=== PATIENT | female | born 1985 | race Caucasian/White ===

== ENCOUNTER 2023-01-13 01:58 | Emergency (ER) | payer SELFPAY ==
[2023-01-13 02:06] VITALS: BP 173/95; PULSE 50; RESP 16; TEMP 36.6; O2SAT 98; BMI 33.3
[2023-01-13] MEDS: KETOROLAC 30 MG/ML VIAL IV (02:06)
[2023-01-13] MEDS: METOCLOPRAMIDE 10 MG/2 ML INJ IV (02:06)
[2023-01-13] MEDS: diphenhydrAMINE 50 MG/ML VIAL 25 MG IV (02:06)
[2023-01-13] MEDS: SODIUM CHLORIDE 0.9% 1,000 ML 1000 ML IV (02:06)
--- NOTE | 2023-01-13 02:08 | ED.GENADULT ---
HPI - General Adult General Chief complaint: Headache Stated complaint: migraine Time Seen by Provider: 01/13/23 01:59 Source: patient and EMS Mode of arrival: EMS Limitations: no limitations History of Present Illness HPI narrative: Patient is a 37-year-old female. She does have a history of migraine headaches. She is brought to the emergency department by EMS for evaluation of a migraine that she states started earlier this evening. It was less than 6 hours ago. She states that this is the worst migraine that she is ever had but it does feel like her prior migraines. It was not sudden onset. No fevers. No neck pain. She is having photophobia. Is also having nausea. Did try caffeine and Tylenol and ibuprofen at home prior to arrival. She did receive fentanyl by EMS prior to arrival as well. Related Data Previous Rx's Medication Instructions Recorded sumatriptan succinate 50 mg tablet See Rx Instructions PO .COMPLEX 01/13/23 (Imitrex) #12 tabs Allergies Allergy/AdvReac Type Severity Reaction Status Date / Time No Known Drug Allergies Allergy Verified 01/13/23 03:09 Review of Systems Constitutional Constitutional: Reports system reviewed and no additional complaints, except as documented Eyes Eyes: Reports system reviewed and no additional complaints, except as documented ENT Ears, Nose, Mouth, and Throat: Reports system reviewed and no additional complaints, except as documented Integumentary/Breasts Skin/Breast: Reports system reviewed and no additional complaints, except as documented Hematologic/Lymphatic On Anticoagulants: No Exam Initial Vital Signs Initial Vital Signs: Vital Signs Temperature 97.8 F 01/13/23 02:06 Pulse Rate 50 L 01/13/23 02:06 Respiratory Rate 16 01/13/23 02:06 Blood Pressure 173/95 H 01/13/23 02:06 Pulse Oximetry 98 01/13/23 02:06 Oxygen Delivery Method Room Air 01/13/23 02:06 Const General: cooperative, comfortable and No ill appearing HENMT Head: normal to inspection and normocephalic Resp Effort & Inspection: normal respiratory effort Cardio Rate: regular rate Skin General: no rashes or lesions noted Neuro General: patient alert, patient awake and moves all extremities Speech: speech normal Motor: muscle tone normal throughout Sensory Exam: no sensory deficits noted Extrem General: normal to inspection Course Orders Ordered: ED Orders 01/13/23 02:10 CT angio head and neck Stat Discontinued Medications Acetaminophen (Acetaminophen 325 Mg Tablet) 650 mg PO NOW ONE Stop: 01/13/23 05:32 Last Admin: 01/13/23 05:53 Dose: 650 mg Documented By: CINTHIA Diphenhydramine HCl (Diphenhydramine 50 Mg/Ml Vial) 25 mg IV NOW ONE Stop: 01/13/23 02:00 Last Admin: 01/13/23 02:06 Dose: 25 mg Documented By: JALEN Sodium Chloride (Normal Saline 0.9%) 1,000 mls @ 1,000 mls/hr IV BOLUS ONE Stop: 01/13/23 02:58 Last Infusion: 01/13/23 03:26 Dose: 0 mls/hr Documented By: Admin: 01/13/23 02:06 Dose: 1,000 mls/hr Documented By: JALEN Ketorolac Tromethamine (Ketorolac 30 Mg/Ml Vial) 30 mg IV NOW ONE Stop: 01/13/23 02:00 Last Admin: 01/13/23 02:06 Dose: 30 mg Documented By: JALEN Metoclopramide HCl (Metoclopramide 10 Mg/2 Ml Inj) 10 mg IV NOW ONE Stop: 01/13/23 02:00 Last Admin: 01/13/23 02:06 Dose: 10 mg Documented By: JALEN Sumatriptan Succinate (Sumatriptan 25 Mg Tablet) 50 mg PO NOW ONE Stop: 01/13/23 05:49 Last Admin: 01/13/23 05:59 Dose: 50 mg Documented By: CINTHIA Vital Signs Vital signs: Vital Signs - 8 hr 01/13/23 02:06 Temperature 97.8 F Pulse Rate 50 L Respiratory Rate 16 Blood Pressure 173/95 H Pulse Oximetry 98 Oxygen Delivery Method Room Air Medical Decision Making Imaging Data CTA - brain/neck: Radiologist's Impression: CT head without contrast No acute intracranial process CT angiography Patient head and neck CTA. No occlusion or hemodynamically significant stenosis involving the cerebral or neck vasculature. No aneurysm ECG Data Attestation: I personally reviewed and interpreted this ECG as follows: MDM Narrative Medical decision making narrative: Patient does have a history of migraines she reports today with a headache that is similar to her previous migraines but just worse than normal. No fevers. No trauma. Low suspicion for meningitis. Head CT performed less than 6 hours of the onset of symptoms negative for intracranial hemorrhage. CTA is unremarkable. No signs of aneurysm. She does report improvement of symptoms after initial treatment however still had some residual headache. She was given a dose of Imitrex. She is not currently on any sort headache medications. Will discharge patient home with a prescription for this. She was given return precautions and follow-up instructions. She expressed understanding agreement. Discharge Plan Departure Patient Disposition: Home Clinical Impression: Migraine Instructions: DI for Migraine Activity Restrictions/Additional Instructions: I do recommend that you contact your primary doctor for follow-up to discuss your headaches. Return to the emergency department for worsening symptoms. Prescriptions: New sumatriptan succinate [Imitrex] 50 mg tablet See Rx Instructions .ROUTE .COMPLEX Qty: 12 0RF Rx Instructions: take 1 tab at onset of headache; if no relief may repeat 1 tab after at least 2 hrs; max = 4 tabs/24 hr Stand Alone Forms: Patient Portal/API
--- NOTE | 2023-01-13 02:10 | DI.CT.S_ITS ---
PROCEDURE: CT ANGIO HEAD AND NECK INDICATIONS: migraine TECHNIQUE: Pre-contrast 4.5 mm thick sections acquired from the foramen magnum to the vertex. After the administration of intravenous contrast, 1 mm thick sections acquired from the aortic arch through the [place]. Post-contrast 4.5 mm thick sections then re-acquired from the foramen magnum to the vertex. 3-dimensional iafehlu-yavhoeikx-pvsovvoolw (MIP) and/or volume rendering reformats were acquired of the central intracranial vasculature and neck separately. For radiation dose reduction, the following was used: automated exposure control, adjustment of mA and/or kV according to patient size. COMPARISON: None. FINDINGS: Image quality: Excellent. BRAIN: CSF spaces: Ventricles are normal in size and shape. Basal cisterns are patent. No extra-axial fluid collections. Brain: No midline shift. No intracranial bleeds or masses. Tan-white matter interface appears intact. Skull and face: Calvarium and facial bones appear intact, without suspicious lesions. Orbits appear normal. Sinuses: Sinuses and mastoids are clear. HEAD CT ANGIOGRAPHY: Anterior circulation: Intracranial internal carotid arteries are normal in size and flow. The flow within the paired anterior cerebral arteries is normal and symmetric. The flow within the middle cerebral arteries is normal and symmetric. The anterior communicating artery is seen. No aneurysms are seen. Posterior circulation: Visualized portions of the vertebral arteries demonstrate normal caliber, and join to form a normal appearing basilar artery. Flow within the posterior cerebral arteries is normal and symmetric. No aneurysms are seen. NECK CT ANGIOGRAPHY: Carotid system: The great vessels demonstrate a conventional anatomy as they arise from the aortic arch. The origins of the common carotid arteries appear patent. The common carotid arteries demonstrate normal caliber and courses. The bifurcation regions are both widely patent. The internal carotid arteries demonstrate normal calibers and courses. Posterior circulation: The origins of the vertebral arteries both appear widely patent. The more superior extracranial portions of both vertebral arteries also demonstrate normal courses and calibers. They join to form a normal appearing basilar artery. Soft tissues: Visualized neck soft tissues demonstrate no suspicious abnormalities. Bones: No suspicious bony lesions. Moderate degenerative disc disease at C5-C6 and C6-C7. Visualized cervical spine appears normally aligned. IMPRESSION: 1. No acute intracranial abnormalities. 2. No hemodynamic significant stenosis in anterior or posterior circulations. 3. No hemodynamic significant stenosis in cervical carotid arteries or vertebral arteries bilaterally. No significant discrepancy with the maintenance mechanic 2nd shift radiology preliminary report. Any quantitative measurements of stenosis were performed using NASCET criteria. Dictated by: Leticia Escamilla M.D. on 01/13/2023 at 7:49 Approved by: Leticia Escamilla M.D. on 01/13/2023 at 9:04
[2023-01-13] MEDS: ACETAMINOPHEN 325 MG TABLET 650 MG PO (05:53)
[2023-01-13] MEDS: SUMAtriptan 25 MG TABLET 50 MG PO (05:59)
[2023-01-13 08:45] VITALS: BP 198/127; PULSE 81; O2SAT 100
[2023-01-13 08:50] VITALS: BP 167/88
== END 2023-01-13 09:00 | disposition home or self-care (01) ==
PROVIDERS: Emergency Provider Emergency Medicine
DX: G43.909 Migraine, unspecified, not intractable, without status migrainosus (principal)
CPT/HCPCS: 70496; 70498; 96361; 96374; 96375; 99284; J1200; J1885; J2765; Q9967